=== PATIENT | male | born 1975 | race Caucasian/White ===

== ENCOUNTER 2019-07-24 18:19 | Emergency (ER) | payer SELFPAY ==
[2019-07-24 18:40] VITALS: BP 103/63
[2019-07-24 19:22] LABS: Influenza A Molecular POSITIVE (Negative)
--- NOTE | 2019-07-24 19:32 | UC ---
FLU HPI - HPI Summary HPI Summary: Patient is a 44yo male presenting with mother for nasal congestion, b/l ear pressure, body aches, chills, and productive cough x2 days. Denies sore throat. Denies sob and wheezing. Denies n/v. - History of Current Complaint Chief Complaint: UCGeneralIllness Stated Complaint: COUGH,ACHES Hx Obtained From: Patient Pain Intensity: 4 Pain Scale Used: 0-10 Numeric - Allergy/Home Medications Allergies/Adverse Reactions: Allergies Allergy/AdvReac Type Severity Reaction Status Date / Time No Known Allergies Allergy Verified 07/24/19 18:40 Home Medications: Home Medications Oseltamivir CAP* [Tamiflu CAP*] 75 mg PO BID #10 cap 07/24/19 [Rx] PMH/Surg Hx/FS Hx/Imm Hx - Surgical History Surgical History: Yes Surgery Procedure, Year, and Place: 2 hernia surgeries - Family History Known Family History: Positive: Non-Contributory - Social History Alcohol Use: Occasionally Substance Use Type: None Smoking Status (MU): Never Smoked Tobacco Review of Systems All Other Systems Reviewed And Are Negative: Yes Constitutional: Positive: Chills, Fatigue ENT: Positive: Ear Ache, Sinus Congestion Respiratory: Positive: Cough. Negative: Shortness Of Breath Cardiovascular: Positive: Negative Gastrointestinal: Positive: Negative Musculoskeletal: Positive: Myalgia Neurological/Mental Status: Positive: Negative Physical Exam - Summary Physical Exam Summary: Vital Signs Reviewed: Yes A+Ox3, no distress Eyes: Conjunctiva Clear ENT: Hearing grossly normal, TM x 2 clear, moist, uvula midline, no exudate, + pharyngeal erythema Neck: Positive: Supple Respiratory: Positive: No respiratory distress, No accessory muscle use + CTA throughout no w/r Cardiovascular: RRR nl s1, s2 no m/r Musculoskeletal Exam: PASTOR x 4 without difficulty Neurological: Positive: Alert Psychological: Positive: age appropriate behavior Skin: Positive: no rash, no ecchymosis Vital Signs: Initial Vital Signs Temp 100.1 F 07/24/19 18:36 Pulse 81 07/24/19 18:36 Resp 16 07/24/19 18:36 BP 103/63 07/24/19 18:36 Pulse Ox 98 07/24/19 18:36 Lab Results 07/24/19 Range/Units 19:16 Influenza A (Rapid) Positive H (Negative) Flu Course/Dx - Course Course Of Treatment: Positive flu A. Educated patient on influenza and tamiflu. Patient prefers to take tamiflu at this time so I sent a prescription to his pharmacy. Instructed to continue with symptomatic treatment as well and to follow up with pcp or [facility] for any new or worsening symptoms. Patient voiced understanding and agreed with treatment plan. - Differential Dx/Diagnosis Provider Diagnosis: Influenza A Discharge ED - Sign-Out/Discharge Documenting (check all that apply): Patient Departure All imaging exams completed and their final reports reviewed: No Studies - Discharge Plan Condition: Stable Disposition: HOME Prescriptions: Oseltamivir CAP* [Tamiflu CAP*] 75 mg PO BID #10 cap Patient Education Materials: Influenza (ED) Referrals: [facility] [Outside] - If Needed Additional Instructions: You tested positive for influenza today. Take tamiflu as prescribed. You may continue with motrin for fever and pain relief. Get plenty of rest and increase your fluid intake. Follow up with your primary care provider or the [facility] listed below if symptoms do not improve within 7 days. - Billing Disposition and Condition Condition: STABLE Disposition: Home
== END 2019-07-24 19:55 | disposition home or self-care (01) ==
LOC: UCCORT 18:19
DX: J10.1 Influenza due to other identified influenza virus with other respiratory manifestations (principal)
CPT/HCPCS: 99212; G0463